=== PATIENT | female | born 1965 | race African-American/Black ===

== ENCOUNTER 2020-01-31 03:11 | Emergency (ER) | payer MEDICAID ==
[~2020-01-31] VITALS: Ht 149.9 cm; Wt 77.1 kg
[2020-01-31 03:16] VITALS: BP 124/77; Ht 149.9 cm; Wt 77.1 kg
== END 2020-01-31 06:54 | disposition home or self-care (01) ==
LOC: ED 03:11
DX: R05 Cough (principal); R07.89 Other chest pain; M79.10 Myalgia, unspecified site